=== PATIENT | female | born 1970 | race Caucasian/White ===

== ENCOUNTER 2017-01-16 09:44 | Emergency (ER) | payer BC ==
[2017-01-16] MEDS ORDERED: Aspirin Low Dose CHEW TAB* 81 MG PO ONE (10:08)
--- NOTE | 2017-01-16 10:38 | RAD ---
HISTORY: Chest pain COMPARISONS: None VIEWS:1: Single frontal portable view of the chest at 10:15 AM FINDINGS: LINES AND TUBES: None. CARDIOMEDIASTINAL SILHOUETTE: The cardiomediastinal silhouette is normal for portable technique. PLEURA: The costophrenic angles are sharp. No pleural abnormalities are noted. LUNG PARENCHYMA: The lungs are clear. ABDOMEN: The upper abdomen is clear. There is no subphrenic gas. BONES AND SOFT TISSUES: No bone or soft tissue abnormalities are noted. IMPRESSION: NO ACTIVE CARDIOPULMONARY DISEASE.
[2017-01-16 10:40] LABS: Hematocrit 42 % (35-47); Hemoglobin 13.8 g/dl (12.0-16.0); Mean Corpuscular HGB Conc 33 g/dl (31-36); Mean Corpuscular Hemoglobin 28 pg (27-31); Mean Corpuscular Volume 86 fL (80-97); Mean Platelet Volume 8 um3 (7.4-10.4); Red Blood Count 4.87 10^6/ul (4.0-5.4); Red Cell Distribution Width 13 % (10.5-15)
[2017-01-16] MEDS ORDERED: SCOP/HYOS/ATR/PB(NF) 10 ML UDC PO ONE (10:44)
[2017-01-16 10:55] LABS: ALT 17 U/L (7-52); AST 15 U/L (13-39); Albumin 4.1 g/dL (3.2-5.2); Alkaline Phosphatase 79 U/L (34-104); Anion Gap 7 mmol/L (2-11); BUN/Creatinine Ratio 13.2 (8-20); Blood Urea Nitrogen 12 mg/dL (6-24); CO2 Carbon Dioxide 25 mmol/L (22-32); Calcium 9.8 mg/dL (8.6-10.3); Chloride 103 mmol/L (101-111); Creatine Kinase 78 U/L (10-223); EGFR Non-African American 66.9 (>60); Globulin 3.2 g/dL (2-4); Glucose 105 mg/dL (70-100); Sodium 135 mmol/L (133-145); Total Protein 7.3 g/dL (6.4-8.9)
[2017-01-16 11:28] LABS: TSH (Thyroid Stimulating Horm) 1.95 mcIU/mL (0.34-5.60)
[2017-01-16] MEDS ORDERED: Al Hydrox/Mg Hydrox/Simet LIQ* 30 ML UDC ONE (11:43)
[2017-01-16] MEDS ORDERED: Lidocaine 2% VISCOUS* 15 ML UDC ONE (11:43)
[2017-01-16 14:09] VITALS: BP 136/89
--- NOTE | 2017-01-16 14:57 | ED ---
HPI Chest Pain - HPI Summary HPI Summary: Patient is a 46yo otherwise healthy female presenting with midsternal chest pain radiating to the back since present for appoximately 1 week which has been worse since yesterday. Pain increases at night and better during the day. Symptoms are worse after eating. Patient has taken tums without relief. She suffers from insomnia and has been taking several medications at night for relief. Many of the medications are NSAIDS including Advil PM. Denies cardiac history or significant family history of cardiac problems. She states the pain does not change from sitting up to laying down. She has a previous history of GERD. She states she had previously been on Omeprazole but was concerned over kidney damage, so she stopped taking it about 2 years ago. She denies any complications since then. She states the pain does not radiate and is described as a stabbing or burning feeling. - History of Current Complaint Chief Complaint: EDChestPainROMI Time Seen by Provider: 01/16/17 10:07 Hx Obtained From: Patient Onset/Duration: Started Days Ago Timing: Intermittent Initial Severity: Moderate Current Severity: Moderate Pain Intensity: 5 Pain Scale Used: 0-10 Numeric Chest Pain Location: Mid Sternal Chest Pain Radiates: Yes Chest Pain Radiates To:: Back Character: Burning, Dull/Aching Aggravating Factor(s): Other: - food Alleviating Factor(s): Nothing Associated Signs and Symptoms: Positive: Chest Pain, Back Pain - Risk Factors Pulmonary Embolism Risk Factors: Negative TAD Risk Factors: Negative AMI/ACS Risk Factors: Obesity - Allergy/Home Medications Allergies/Adverse Reactions: Allergies Allergy/AdvReac Type Severity Reaction Status Date / Time Aspirin Allergy GI Upset Verified 01/16/17 09:45 Penicillins Allergy GI Upset Verified 01/16/17 09:45 PMH/Surg Hx/FS Hx/Imm Hx Previously Healthy: Yes Infectious Disease History: No Infectious Disease History: Denies: Traveled Outside the [place] in Last 30 Days - Social History Occupation: Employed Full-time Lives: With Family Alcohol Use: Occasionally Hx Substance Use: No Substance Use Type: Reports: None Hx Tobacco Use: No Smoking Status (MU): Never Smoked Tobacco Review of Systems Constitutional: Negative Positive: Chest Pain - radiating to back Respiratory: Negative Gastrointestinal: Negative Positive: no symptoms reported, see HPI Musculoskeletal: Negative Neurological: Negative Psychological: Normal All Other Systems Reviewed And Are Negative: Yes Physical Exam Triage Information Reviewed: Yes Vital Signs On Initial Exam: Initial Vitals Temp Pulse Resp BP Pulse Ox 97.2 F 103 16 149/94 100 01/16/17 09:45 01/16/17 09:45 01/16/17 09:45 01/16/17 09:45 01/16/17 09:45 Vital Signs Reviewed: Yes Appearance: Positive: Well-Appearing, Well-Nourished Skin: Positive: Warm, Skin Color Reflects Adequate Perfusion ENT: Positive: Normal ENT inspection, Pharynx normal Dental: Positive: Abscess @ Neck: Positive: No Lymphadenopathy Respiratory/Lung Sounds: Positive: Clear to Auscultation, Breath Sounds Present Cardiovascular: Positive: Normal, RRR, Pulses are Symmetrical in both Upper and Lower Extremities Abdomen Description: Positive: Nontender, Soft Musculoskeletal: Positive: Normal, Strength/ROM Intact Neurological: Positive: Normal, Sensory/Motor Intact, Alert, Oriented to Person Place, Time, Speech Normal Psychiatric: Positive: Normal - Melissa Coma Scale Coma Scale Total: 15 Diagnostics - Vital Signs Vital Signs Temp Pulse Resp BP Pulse Ox 01/16/17 14:11 98 F 79 16 136/89 01/16/17 14:00 68 19 136/89 99 01/16/17 13:00 80 22 98 01/16/17 12:00 73 17 99 01/16/17 11:00 83 17 98 01/16/17 10:45 98 01/16/17 10:08 85 99 01/16/17 09:45 97.2 F 103 16 149/94 100 - Laboratory Lab Results: Lab Results 01/16/17 01/16/17 01/16/17 Range/Units 10:24 10:24 10:24 WBC 7.0 (3.5-10.8) 10^3/ul RBC 4.87 (4.0-5.4) 10^6/ul Hgb 13.8 (12.0-16.0) g/dl Hct 42 (35-47) % MCV 86 (80-97) fL MCH 28 (27-31) pg MCHC 33 (31-36) g/dl RDW 13 (10.5-15) % Plt Count 273 (150-450) 10^3/ul MPV 8 (7.4-10.4) um3 Neut % (Auto) 67.6 (38-83) % Lymph % (Auto) 26.4 (25-47) % [place] % (Auto) 5.1 (1-9) % Eos % (Auto) 0.3 (0-6) % Baso % (Auto) 0.6 (0-2) % Absolute Neuts (auto) 4.7 (1.5-7.7) 10^3/ul Absolute Lymphs (auto) 1.8 (1.0-4.8) 10^3/ul Absolute Monos (auto) 0.4 (0-0.8) 10^3/ul Absolute Eos (auto) 0 (0-0.6) 10^3/ul Absolute Basos (auto) 0 (0-0.2) 10^3/ul Absolute Nucleated RBC 0 10^3/ul Nucleated RBC % 0.1 APTT 25.2 L (26.0-36.3) seconds D-Dimer, Quantitative < 200 (Less Than 230) ng/mL Sodium 135 (133-145) mmol/L Potassium 4.0 (3.5-5.0) mmol/L Chloride 103 (101-111) mmol/L Carbon Dioxide 25 (22-32) mmol/L Anion Gap 7 (2-11) mmol/L BUN 12 (6-24) mg/dL Creatinine 0.91 (0.51-0.95) mg/dL Est GFR ( Amer) 86.0 (>60) Est GFR (Non-Af Amer) 66.9 (>60) BUN/Creatinine Ratio 13.2 (8-20) Glucose 105 H (70-100) mg/dL Lactic Acid (0.5-2.0) mmol/L Calcium 9.8 (8.6-10.3) mg/dL Total Bilirubin 0.40 (0.2-1.0) mg/dL AST 15 (13-39) U/L ALT 17 (7-52) U/L Alkaline Phosphatase 79 (34-104) U/L Total Creatine Kinase 78 (10-223) U/L Myoglobin 29.8 (14.3-65.8) ng/mL Troponin I 0.00 (<0.04) ng/mL B-Natriuretic Peptide ( - 100) pg/mL Total Protein 7.3 (6.4-8.9) g/dL Albumin 4.1 (3.2-5.2) g/dL Globulin 3.2 (2-4) g/dL Albumin/Globulin Ratio 1.3 (1-3) TSH 1.95 (0.34-5.60) mcIU/mL Beta HCG, Quant < 0.60 mIU/mL 01/16/17 01/16/17 01/16/17 Range/Units 10:24 10:24 13:16 WBC (3.5-10.8) 10^3/ul RBC (4.0-5.4) 10^6/ul Hgb (12.0-16.0) g/dl Hct (35-47) % MCV (80-97) fL MCH (27-31) pg MCHC (31-36) g/dl RDW (10.5-15) % Plt Count (150-450) 10^3/ul MPV (7.4-10.4) um3 Neut % (Auto) (38-83) % Lymph % (Auto) (25-47) % [place] % (Auto) (1-9) % Eos % (Auto) (0-6) % Baso % (Auto) (0-2) % Absolute Neuts (auto) (1.5-7.7) 10^3/ul Absolute Lymphs (auto) (1.0-4.8) 10^3/ul Absolute Monos (auto) (0-0.8) 10^3/ul Absolute Eos (auto) (0-0.6) 10^3/ul Absolute Basos (auto) (0-0.2) 10^3/ul Absolute Nucleated RBC 10^3/ul Nucleated RBC % APTT (26.0-36.3) seconds D-Dimer, Quantitative (Less Than 230) ng/mL Sodium (133-145) mmol/L Potassium (3.5-5.0) mmol/L Chloride (101-111) mmol/L Carbon Dioxide (22-32) mmol/L Anion Gap (2-11) mmol/L BUN (6-24) mg/dL Creatinine (0.51-0.95) mg/dL Est GFR ( Amer) (>60) Est GFR (Non-Af Amer) (>60) BUN/Creatinine Ratio (8-20) Glucose (70-100) mg/dL Lactic Acid 1.1 (0.5-2.0) mmol/L Calcium (8.6-10.3) mg/dL Total Bilirubin (0.2-1.0) mg/dL AST (13-39) U/L ALT (7-52) U/L Alkaline Phosphatase (34-104) U/L Total Creatine Kinase (10-223) U/L Myoglobin (14.3-65.8) ng/mL Troponin I 0.02 (<0.04) ng/mL B-Natriuretic Peptide 57 ( - 100) pg/mL Total Protein (6.4-8.9) g/dL Albumin (3.2-5.2) g/dL Globulin (2-4) g/dL Albumin/Globulin Ratio (1-3) TSH (0.34-5.60) mcIU/mL Beta HCG, Quant mIU/mL Result Diagrams: 01/16/17 10:24 01/16/17 10:24 Lab Statement: Any lab studies that have been ordered have been reviewed, and results considered in the medical decision making process. Chest Pain Course/Dx - Course Course Of Treatment: Labs WNL. 2 troponins negative. Xray negative. Patient describes pain worse after eating and laying down, history of taking NSAIDS prior to bedtime and history of GERD. Patient was given Maalox and lidcaine which relieved the pain. D/t history and symptoms decreased after medication, this is likely a PUD or gastritis and needs to be followed by GI. Patient encouraged to follow up with Dr. Palacio and begin on Omeprazole trial. Educated patient on return precautions for any pain that is differing from what she is currently experiencing. Patient agrees with plan and will follow up. Omeprazole sent to rx. D-Dimer negative. - Chest Pain Differential Diagnosis/HQI/PQRI: Acute [place], Angina - Diagnoses Provider Diagnoses: PEPTIC ULCER Discharge - Discharge Plan Condition: Stable Disposition: HOME Prescriptions: Omeprazole 40 mg PO BEDTIME #30 cap Patient Education Materials: Peptic Ulcer (ED), Diet for Ulcers and Gastritis ( ED) Referrals: Oneil Palcaio MD [Medical Doctor] - Niko Victoria MD [Primary Care Provider] - Additional Instructions: Please follow up with DR. Palacio in GI. Omeprazole at bedtime. Avoid caffeine, NSAIDS and eating close to bedtime. If you take any medications, take them at least 30 minutes prior to laying down.
== END 2017-01-16 14:11 | disposition home or self-care (01) ==
LOC: ED 09:44
DX: K27.9 Peptic ulcer, site unspecified, unspecified as acute or chronic, without hemorrhage or perforation (principal); Z88.6 Allergy status to analgesic agent; Z88.0 Allergy status to penicillin
CPT/HCPCS: 36415; 71010; 80053; 82550; 83605; 83874; 83880; 84443; 84484; 84702; 85025; 85379; 85730; 93005; 99282; A9270-GY